=== PATIENT | male | born 1980 | race Caucasian/White ===

== ENCOUNTER 2019-10-04 19:16 | Emergency (ER) | payer OTHER ==
[2019-10-04 19:33] VITALS: BP 127/96; PULSE 91; TEMP 98.6; BMI 25.0
[2019-10-04] MEDS ORDERED: IBUPROFEN 600 MG TABLET (FP) PO ONE ×2 (19:34→19:37)
--- NOTE | 2019-10-04 20:40 | PDOC ---
History of Present Illness - General Chief Complaint: Injury Stated Complaint: INJURY Time Seen by Provider: 10/04/19 19:30 History Source: Patient Exam Limitations: No Limitations - History of Present Illness Initial Comments: 10/04/19 20:37 39-year-old male denies past medical history [id number] complains of right thumb pain status post injury while at work today. 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 Patient did not strike the ground denies any other injury or complaint. ROS: as above PE: GENERAL: well-appearing, NAD HEAD: NCAT EYES: Pupils equal, round and reactive to light, sclera anicteric, conjunctiva clear ENT: pharynx: no erythema, no exudate, uvula midline NECK: supple CHEST: nontender RESP: clear, no w/r/r CARDIO: rrr, no m/g/r ABD: +BS, soft, nontender, non distended BACK: no midline spinal ttp, no CVAT EXTREMITIES: Normal range of motion, no swelling, no tenderness to palpation or ecchymosis noted over right thumb, 5/5 strength and sensation NEUROLOGICAL: Normal speech, normal gait SKIN: Warm, Dry Is this a multiple visit Asthma Patient?: No Past History - Medical History Allergies/Adverse Reactions: Allergies Allergy/AdvReac Type Severity Reaction Status Date / Time No Known Allergies Allergy Verified 03/02/13 08:32 Home Medications: Ambulatory Orders Hydrocodone Bit/Acetaminophen [Vicodin 5-500] 1 - 2 tab PO PRN PRN #15 tab 03/02/13 No Home Medications 0 dose .ROUTE UTDICT 03/02/13 COPD: No - Psycho-Social/Smoking History Smoking History: Never smoked - Substance Abuse Hx (Audit-C & DAST Scrn) How often the patient has a drink containing alcohol: Monthly or less Number of drinks the patient has on a typical day: 1 or 2 How often the patient has six or more drinks on one occasion: Never Score: In Men: 4 or > Positive; In Women: 3 or > Positive: 1 Screen Result (Pos requires Nsg. Audit-10AR): Negative In the last yr the pt used illegal drug/Rx for NonMed reason: No Score: Yes response is considered Positive: 0 Screen Result (Positive result requires Nsg. DAST-10): Negative *Physical Exam - Vital Signs Last Vital Signs Temp Pulse Resp BP Pulse Ox 98.6 F 91 H 19 127/96 99 10/04/19 19:19 10/04/19 19:19 10/04/19 19:19 10/04/19 19:19 10/04/19 19:19 ED Treatment Course - RADIOLOGY Radiology Studies Ordered: Category Date Time Status FINGER(S) RIGHT [RAD] Stat Radiology 10/04/19 19:34 Taken - Medications Given in the ED: ED Medications Discontinued Medications Generic Name Dose Route Start Last Admin Trade Name Freq PRN Reason Stop Dose Admin Ibuprofen 600 mg 10/04/19 19:34 10/04/19 19:39 Motrin - PO 10/04/19 19:35 600 mg ONCE ONE Administration Medical Decision Making - Medical Decision Making 10/04/19 20:39 39-year-old male denies past medical history [id number] complains of right thumb pain status post injury while at work today. 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 Patient did not strike the ground denies any other injury or complaint. Right thumb x-ray -old healed fracture, no acute fracture noted on my wet read P.o. ibuprofen 600 mg Stable for discharge Discharge - Discharge Information Problems reviewed: Yes Clinical Impression/Diagnosis: Thumb pain Qualifiers: Laterality: right Qualified Code(s): M79.644 - Pain in right finger(s) Condition: Stable Disposition: HOME - Admission No - Follow up/Referral Referrals: Taran Pham [Primary Care Provider] - - Patient Discharge Instructions Additional Instructions: Take ibuprofen 600 mg every 6 hours as needed for pain Rest, apply ice - Post Discharge Activity
== END 2019-10-04 20:57 | disposition home or self-care (01) ==
LOC: JERFT 19:16 → JER 19:16 → JERFT 20:57
DX: M79.644 Pain in right finger(s) (principal)
CPT/HCPCS: 73140-TC-RT-FY; 99283-25